=== PATIENT | male | born 1995 | race Caucasian/White ===

== ENCOUNTER 2019-03-07 11:23 | Emergency (ER) | payer OTHER ==
[~2019-03-07] VITALS: Ht 177.8 cm; Wt 98.8 kg
[2019-03-07] MEDS ORDERED: ACETAMINOPHEN 325 MG TAB PO ONE (12:00)
[2019-03-07] MEDS ORDERED: CYCL10TA PO (13:14)
[2019-03-07] MEDS ORDERED: IBUP80TA PO (13:14)
--- NOTE | 2019-03-07 13:15 | REP ---
CT HEAD WITHOUT CONTRAST: HISTORY: Trauma. There is no intraparenchymal hemorrhage, mass, or midline shift. The ventricular system is normal in appearance. There is no extracerebral collection. There is no fracture. The visualized sinuses are clear. IMPRESSION: There is no intracranial lesion. Electronically Signed by Kodi Onofre MD 03/07/2019 01:17 P
[2019-03-07 13:17] VITALS: BP 143/78
== END 2019-03-07 13:22 | disposition home or self-care (01) ==
LOC: M ED 11:23
DX: S16.1XXA Strain of muscle, fascia and tendon at neck level, initial encounter (principal); S09.90XA Unspecified injury of head, initial encounter; V43.52XA Car driver injured in collision with other type car in traffic accident, initial encounter; Y92.410 Unspecified street and highway as the place of occurrence of the external cause; M62.830 Muscle spasm of back; Z88.0 Allergy status to penicillin

== ENCOUNTER 2021-03-05 17:03 | Emergency (ER) | payer OTHER ==
[~2021-03-05] VITALS: Ht 177.8 cm; Wt 97.7 kg
[~2021-03-05 17:03] MED LIST: CYCL-707 PO; IBUP80TA PO
[2021-03-05] MEDS ORDERED: BACITRACIN OINTMENT 30GM TUBE TOP ONE (20:40)
[2021-03-05] MEDS ORDERED: DERMABOND TOPICAL SKIN ADHESIVE TOP ONE (20:50)
[2021-03-05] MEDS ORDERED: CEPH500C PO (21:08)
[2021-03-05 21:27] VITALS: BP 143/76
--- NOTE | 2021-03-05 22:04 | REPVR ---
PROCEDURE INFORMATION: Exam: XR Right Hand Exam date and time: 03/05/2021 8:38 PM Age: 25 years old Clinical indication: Other: Trauma; Additional info: Trauma, R/O fb TECHNIQUE: Imaging protocol: XR Right hand. Views: 1 or 2 views. COMPARISON: No relevant prior studies available. FINDINGS: Bones/joints: Normal. Soft tissues: Normal. No radiopaque foreign body. IMPRESSION: No acute findings. PROCEDURE INFORMATION: Exam: XR Left Hand Exam date and time: 03/05/2021 8:38 PM Age: 25 years old Clinical indication: Other: Trauma; Additional info: Trauma, R/O fb TECHNIQUE: Imaging protocol: XR Left hand. Views: 1 or 2 views. COMPARISON: No relevant prior studies available. FINDINGS: Bones/joints: Normal. Soft tissues: Normal. No radiopaque foreign body. IMPRESSION: No acute findings. Electronically signed by: Abdulkadir Gtz On 03/05/2021 22:03:49 PM
== END 2021-03-05 21:30 | disposition home or self-care (01) ==
LOC: M ED 17:03
DX: S61.011A Laceration without foreign body of right thumb without damage to nail, initial encounter (principal); S61.012A Laceration without foreign body of left thumb without damage to nail, initial encounter; S01.81XA Laceration without foreign body of other part of head, initial encounter; S60.552A Superficial foreign body of left hand, initial encounter; W25.XXXA Contact with sharp glass, initial encounter; Y92.018 Other place in single-family (private) house as the place of occurrence of the external cause; Z88.0 Allergy status to penicillin

== ENCOUNTER 2021-07-21 00:08 | Inpatient (IN) | payer OTHER ==
[~2021-07-21] VITALS: Ht 180.3 cm; Wt 100.0 kg
[~2021-07-21 00:08] MED LIST changes: +CEPH500C PO
[2021-07-21 01:37] LABS: HEMATOCRIT 47.8 % (42.0-52.0); MEAN CORPUSCULAR HEMOGLOBIN 30.6 pg (27.0-33.0); MEAN CORPUSCULAR HGB CONC 35.6 g/dl (32.0-36.5); MEAN CORPUSCULAR VOLUME 86.1 fl (80.0-96.0); PLATELET COUNT, AUTOMATED 338 10^3/uL (150-450); RED BLOOD COUNT 5.55 10^6/uL (4.30-6.10); WHITE BLOOD COUNT 8.2 10^3/uL (4.0-10.0)
[2021-07-21 01:38] LABS: AMPHETAMINES LEVEL URINE NEGATIVE (NEGATIVE); BARBITURATES URINE NEGATIVE (NEGATIVE); BENZODIAZEPINES URINE NEGATIVE (NEGATIVE); CANNABINOIDS URINE NEGATIVE (NEGATIVE); COCAINE METABOLITE URINE NEGATIVE (NEGATIVE); METHADONE URINE NEGATIVE (NEGATIVE); OPIATES URINE NEGATIVE (NEGATIVE); PHENCYCLIDINE URINE NEGATIVE (NEGATIVE)
[2021-07-21 02:21] LABS: ACETAMINOPHEN LEVEL < 2.0 UG/ML (10.0-30.0); ALBUMIN 4.2 GM/DL (3.2-5.2); ALT/SGPT 54 U/L (12-78); BILIRUBIN,DIRECT 0.1 MG/DL (0.0-0.2); BILIRUBIN,TOTAL 0.5 MG/DL (0.2-1.0); BLOOD UREA NITROGEN 20 MG/DL (7-18); CALCIUM LEVEL 9.8 MG/DL (8.5-10.1); CARBON DIOXIDE LEVEL 26 MEQ/L (21-32); CHLORIDE LEVEL 105 MEQ/L (98-107); CREATININE FOR GFR 1.04 MG/DL (0.70-1.30); ETHYL ALCOHOL (ETHANOL) < 0.003 % (0.000-0.010); GLOMERULAR FILTRATION RATE > 60.0 (>60); GLUCOSE, FASTING 101 MG/DL (70-100); POTASSIUM SERUM 3.8 MEQ/L (3.5-5.1); SALICYLATE LEVEL < 1.7 MG/DL (5.0-30.0); SODIUM LEVEL 138 MEQ/L (136-145); TOTAL PROTEIN 7.4 GM/DL (6.4-8.2)
[2021-07-21 02:35] LABS: RSV AMPLIFICATION NEGATIVE (NEGATIVE)
[2021-07-21] MEDS ORDERED: HOME MED LIST COMPLETE! XX SCH (06:00)
[2021-07-21] MEDS ORDERED: MOM 30ML SUSPENSION UDC PO PRN (06:20)
[2021-07-21] MEDS ORDERED: traZODone 50 MG TAB PO PRN (06:20)
[2021-07-21] MEDS ORDERED: ACETAMINOPHEN TAB 650MG DOSE (2X325MG) PO PRN (06:20)
[2021-07-21] MEDS ORDERED: NICOTINE 21MG/24HR 1 EA TRANSDERMAL TD PRN (06:20)
[2021-07-21] MEDS ORDERED: MAALOX 30 ML SUSP *UDC PO PRN (06:20)
[2021-07-21 13:40] VITALS: BP 142/93
[2021-07-22 06:14] VITALS: BP 141/69
[2021-07-22 16:16] VITALS: BP 145/87
[2021-07-23 07:10] VITALS: BP 149/72
[2021-07-23 17:44] VITALS: BP 130/80
[2021-07-24 09:00] VITALS: BP 109/53
[2021-07-24 17:27] VITALS: BP 137/77
[2021-07-25 07:00] VITALS: BP 126/65
[2021-07-25 15:35] VITALS: BP 140/88
[2021-07-26 06:21] VITALS: BP 149/63
[2021-07-26 15:38] VITALS: BP 140/80
[2021-07-27 06:37] VITALS: BP 134/76
== END 2021-07-27 10:19 | disposition home or self-care (01) | DRG 882 ==
LOC: M ED 00:08 → M ED INP 06:17 → M PSY 13:32
PROVIDERS: ADMIT Psychiatry & Neurology Psychiatry; ATTEND Psychiatry & Neurology Psychiatry
DX: F43.20 Adjustment disorder, unspecified (principal); F43.10 Post-traumatic stress disorder, unspecified; Z91.82 Personal history of military deployment; Z63.5 Disruption of family by separation and divorce; Z91.51 Personal history of suicidal behavior; Z88.0 Allergy status to penicillin; Z59.9 Problem related to housing and economic circumstances, unspecified